=== PATIENT | male | born 1995 | race Two or more races ===

== ENCOUNTER 2024-08-29 09:05 | Outpatient (AMB) | payer BC, SELFPAY ==
[2024-08-29 09:15] VITALS: BP 149/86; PULSE 71; RESP 19; TEMP 36.3; O2SAT 98; BMI 29.5
--- NOTE | 2024-08-29 09:15 | GSCOFFNT_ITS ---
Vital Signs - [facility] 08/29/24 09:15 Height 1.85 m Height Method Stated Weight 101.378 kg Weight Measurement Method Standing Scale BMI 29.5 BP 149/86 H Blood Pressure Source Automatic Cuff Blood Pressure Location Right Upper Arm Position Sitting Respiration 19 Pulse 71 Pulse Source Monitor Temp 97.3 F Temp Source Temporal Artery Scan Pulse Oximetry (%) 98 Oxygen Delivery Method Room Air Med/Allergies Allergies & Medications Allergies No Known Drug Allergies Allergy (Verified 08/29/24 09:22) Medication Reconciliation ibuprofen 200 mg capsule 200 mg PO Q6H PRN 08/29/24 [History Confirmed 08/29/24] MA Intake Visit Data Collection New Patient or Established: New Patient (never been to [facility]) Reason for Visit:: CHOLELITHIASIS Pain Present Currently: Yes Pain Location: Abdomen Pain scale:: 5 Pain Scale Used: Moore-Diaz/Numerical Chief Data Officer Required: No PCP or OBGYN visit in last 3 months: Yes Hx Now: No Do You Feel Safe at Home: Yes Authorities Contacted: N/A Smoking Status Smoking Status: Former smoker Years smoked: 2 Are you interested in quitting?: No Would you like additional Smoking Cessation Counseling?: No Immunization / Flu Flu Vaccine in the Last 12 Months: No Flu Vaccine Exclusion Criteria: Refused by Patient Past Medical History Social History SMOKING STATUS: Smoking status: Former smoker Travel Risk Travel Hx Recent Travel: No HPI HPI Narrative 29M referred for cholelithiasis. Pt reports for the past year he has had intermittent pain, sometimes in the bilateral upper back but sometimes at the epigastrium/RUQ. Pt reports the pain symptoms comes after eating, but he also states that he sometimes eats greasy foods and does not have any pain. When the pain occurs it is severe and associated with nausea and diarrhea. He sought care at [facility] in 12/2023, underwent CT showing cholelithiasis but also underwent abdominal US which did not demonstrate cholelithiasis. Pt states he sometimes goes long periods without having any pain, he most recently had it a couple weeks ago PMH: None PSHx: None Meds: Ibuprofen, tylenol PRN for pain Allergies: NKDA Social hx: Nonsmoker ROS Review of Systems Systems Reviewed: All systems reviewed, normal except as documented Objective/Exam General General Appearance: alert, cooperative and well groomed Resp Respiratory exam: Absent respiratory distress Abdominal Abdominal exam: Present soft; Absent distention, tenderness or Spencer's sign Results CT AP 01/10/24: No hydronephrosis or obstructing urolith, cholelithiasis without CT evidence of cholecystitis US 01/10/24: Unremarkable RUQ US, known cholelithiasis is not well visualized on current exam Assessment & Plan Diagnosis / Problem List (1) Cholelithiasis: Status: Acute Plan 29M presenting with 1-year history of intermittent back/upper abdominal pain, CT findings of cholelithiasis which was not visualized on US. I explained that symptomatic cholelithiasis does tend to recur and surgery is recommended to prevent future attacks, and explained benefits/risks of surgery including need for conversion to open, bleeding, infection, hernia, injury to nearby structures requiring further procedures or surgery, as well as postoperative diarrhea. As pt's symptoms are far between he prefers to hold off on surgery for now, would like to repeat US since the initial was negative and will follow up after Orders: Orders US abdomen limited 2 Weeks K80.20 - Calculus of gallbladder without cholecystitis without obstruction Office Procedures GNS Level of Care Nursing/Assessment Patient Status: Initial/New Patient Nursing Assessment/Reassesment: Medication Reconciliation, Update PMH in EMR and Vital Signs Coordination of Care: Complex Care and Chronic Disease 1-5, Education Complex P t/Fam, Consent,records obtained, informed consent, Lab and Imaging orders, Results/Orders obtained and Staff clarify orders New Patient Charge New Patient Point Assignment: [id number] New Patient Point Charge: PAIRER ODDS Level 3 ([id number]) Patient Portal Questionaires Social History Tobacco History Smoking Status: Former smoker Domestic Abuse History Do You Feel Safe at Home: Yes Review of Systems Report any current symptoms Only answer those that you have currently: Past Medical History Past Medical History Have you ever been diagnosed with any of the following:
== END 2024-08-29 09:25 | disposition home or self-care (01) ==
LOC: HODSRG 09:05
PROVIDERS: Supervising Provider Surgery; Visit Provider Surgery
DX: K80.20 Calculus of gallbladder without cholecystitis without obstruction (principal)
CPT/HCPCS: 99203; G0463

== ENCOUNTER → 2024-09-23 | Outpatient (CLI) | payer BC, SELFPAY ==
--- NOTE | 2024-09-23 09:30 | XR_ITS ---
Examination: Abdomen sonogram, Limited Date and time of exam: September 23, 2024 1008 hours INDICATIONS: Recurrent right upper abdominal pain beginning 6 months ago Technique: Real-time ravi scale transabdominal sonographic images of the upper abdomen obtained. Findings: Multiple gallstones, the largest 19 mm Gallbladder wall 0.39 cm suspicious for edema involving the gallbladder wall Common bile duct 0.4 cm Pancreatic head 2.6 cm Liver 16.4 cm fatty infiltration irregular contour no focal liver lesions Normal hepatopedal portal venous flow Patent IVC IMPRESSION: Cholelithiasis Suspicious for cholecystitis, consider MRCP follow-up
== END | disposition home or self-care (01) ==
PROVIDERS: PCP Surgery; Referring Provider Surgery; Visit Provider Surgery
DX: K80.20 Calculus of gallbladder without cholecystitis without obstruction (principal)
CPT/HCPCS: 76705

== ENCOUNTER 2024-10-24 10:05 | Outpatient (AMB) | payer BC, SELFPAY ==
[2024-10-24 10:51] VITALS: BP 136/83; PULSE 56; RESP 18; TEMP 36.4; O2SAT 96; BMI 29.5
--- NOTE | 2024-10-24 10:51 | PD.GSCLVISIT ---
Vital Signs - [facility] 10/24/24 10:51 Height 1.85 m Height Method Stated Weight 101.236 kg Weight Measurement Method Standing Scale BMI 29.5 BP 136/83 H Blood Pressure Source Automatic Cuff Blood Pressure Location Left Upper Arm Position Sitting Respiration 18 Pulse 56 L Pulse Source Monitor Temp 97.6 F Temp Source Temporal Artery Scan Pulse Oximetry (%) 96 Oxygen Delivery Method Room Air Med/Allergies Allergies & Medications Allergies No Known Drug Allergies Allergy (Verified 10/24/24 10:52) Medication Reconciliation No Known Home Medications 10/24/24 [History Confirmed 10/24/24] MA Intake Visit Data Collection New Patient or Established: Established Patient (seen at [facility] within 3 years) Seen by Clinical Staff ONLY (RN/MA): No Reason for Visit:: ULTRASOUND RESULTS Pain Present Currently: 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 At last visit pt preferred to repeat US before proceeding with surgery, it was done 09/23/24 showing multiple gallstones one up to 19mm. Pt states he has not had severe pain but has had episodes of RUQ discomfort, and he is now interested in having surgery ROS Review of Systems Systems Reviewed: All systems reviewed, normal except as documented Objective/Exam General General Appearance: alert, cooperative and well groomed Resp Respiratory exam: Absent respiratory distress Results US reviewed Assessment & Plan Diagnosis / Problem List (1) Symptomatic cholelithiasis: Status: Acute Assessment & Plan: 29M with symptomatic cholelithiasis. We have discussed risks/benefits of surgery, pt understands and would like to proceed but prefers to wait until December, will follow up in November Office Procedures GNS Level of Care Nursing/Assessment Patient Status: Established Patient Nursing Assessment/Reassesment: Medication Reconciliation, Update PMH in EMR and Vital Signs Coordination of Care: Complex Care and Chronic Disease 1-5, Consent,records obtained, informed consent, Education Simp Pt/Fam, Results/Orders obtained and Staff clarify orders Established Patient Charge Established Patient Point Assignment: 90 Established Patient Point Charge: EP Level 3 (80-115) Patient Portal Questionaires Social History Tobacco History Smoking Status: Former smoker Domestic Abuse History Do You Feel Safe at Home: Yes Review of Systems Report any current symptoms Only answer those that you have currently: Past Medical History Past Medical History Have you ever been diagnosed with any of the following:
== END 2024-10-24 10:57 | disposition home or self-care (01) ==
LOC: HODSRG 10:05
PROVIDERS: Supervising Provider Surgery; Visit Provider Surgery
DX: K80.20 Calculus of gallbladder without cholecystitis without obstruction (principal)
CPT/HCPCS: 99213; G0463

== ENCOUNTER 2024-12-16 10:02 | Outpatient (AMB) | payer BC, SELFPAY ==
[2024-12-16 10:26] VITALS: BP 134/84; PULSE 60; RESP 19; TEMP 36.6; O2SAT 97; BMI 29.5
--- NOTE | 2024-12-16 10:26 | PD.GSCLVISIT ---
Vital Signs - [facility] 12/16/24 10:26 Height 1.85 m Height Method Stated Weight 100.839 kg Weight Measurement Method Standing Scale BMI 29.5 BP 134/84 H Blood Pressure Source Automatic Cuff Blood Pressure Location Left Upper Arm Position Sitting Respiration 19 Pulse 60 Pulse Source Monitor Temp 97.8 F Temp Source Temporal Artery Scan Pulse Oximetry (%) 97 Oxygen Delivery Method Room Air Med/Allergies Allergies & Medications Allergies No Known Drug Allergies Allergy (Verified 12/16/24 10:27) Medication Reconciliation No Known Home Medications 10/24/24 [History Confirmed 12/16/24] MA Intake Visit Data Collection New Patient or Established: Established Patient (seen at [facility] within 3 years) Seen by Clinical Staff ONLY (RN/MA): No Reason for Visit:: 2 MONTH FOLLOW UP Pain Present Currently: No PCP or OBGYN visit in last 3 months: Yes Hx Now: No Do You Feel Safe at Home: Yes Authorities Contacted: N/A Smoking Status Smoking Status: Former smoker Immunization / Flu Flu Vaccine in the Last 12 Months: No Flu Vaccine Exclusion Criteria: No Exclusion Criteria Past Medical History Social History SMOKING STATUS: Smoking status: Former smoker HPI HPI Narrative 29M here for follow up of cholelithiasis. Pt reports he had an episode of pain and vomiting recently after going out for a work event, otherwise no new complaints ROS Review of Systems Systems Reviewed: All systems reviewed, normal except as documented Objective/Exam General General Appearance: alert, cooperative and well groomed Resp Respiratory exam: Absent respiratory distress Assessment & Plan Diagnosis / Problem List (1) Symptomatic cholelithiasis: Status: Acute Assessment & Plan: 29M with symptomatic cholelithiasis here to discuss surgery. I reiterated risks including need for conversion to open, bleeding, infection, injury to nearby structures requiring further procedures or major surgery which would require transfer to another hospital, hernia and diarrhea. All questions were answered and pt is agreeable to proceeding Plan: Laparoscopic cholecystectomy, possible open MonJan 01 per pt preference Office Procedures GNS Level of Care Nursing/Assessment Patient Status: Established Patient Nursing Assessment/Reassesment: Medication Reconciliation, Update PMH in EMR and Vital Signs Coordination of Care: Complex Care and Chronic Disease 1-5, Consent,records obtained, informed consent, Education Simp Pt/Fam, Results/Orders obtained and Staff clarify orders Established Patient Charge Established Patient Point Assignment: 90 Established Patient Point Charge: EP Level 3 (80-115) Patient Portal Questionaires Social History Tobacco History Smoking Status: Former smoker Domestic Abuse History Do You Feel Safe at Home: Yes Review of Systems Report any current symptoms Only answer those that you have currently: Past Medical History Past Medical History Have you ever been diagnosed with any of the following:
== END 2024-12-16 10:39 | disposition home or self-care (01) ==
PROVIDERS: Supervising Provider Surgery; Visit Provider Surgery
DX: K80.20 Calculus of gallbladder without cholecystitis without obstruction (principal)
CPT/HCPCS: 99213; G0463

== ENCOUNTER 2025-01-01 05:35 | Day surgery (SDC) | payer BC, SELFPAY ==
[2024-12-26 09:23] VITALS: BMI 29.5
[2024-12-26 10:03] LABS: Basophils % (Auto) 1 % (0-2.5); Eosinophils # (Auto) 0.1 Thou/mm3 (0.0-0.5); Eosinophils % (Auto) 2 % (0-10); Hematocrit 43.7 % (41.0-53.0); Hemoglobin 15.5 g/dL (13.5-16.0); Immature Granulocytes % (Auto) 0 % (0-0); Immature Granulocytes Auto 0.03 Thou/mm3 (0.00-0.00); Lymphocytes # (Auto) 1.9 Thou/mm3 (1.0-4.8); Lymphocytes % (Auto) 25 % (10-50); Mean Corpuscular HGB Conc 35.5 g/dl (31.0-37.0); Mean Corpuscular Hemoglobin 29.9 pg (25.0-35.0); Mean Corpuscular Volume 84 fL (80-100); Monocytes # (Auto) 0.6 Thou/mm3 (0.0-0.8); Monocytes % (Auto) 7 % (0-12); Neutrophils # (Auto) 4.9 Thou/mm3 (1.8-7.7); Neutrophils % (Auto) 65 % (37-80); Nucleated Red Blood Cell % 0 /100 WBC (0); Platelet Count 241 Thou/mm3 (140-440); RDW Standard Deviation 37.2 fL (35.1-43.9); Red Blood Count 5.18 Miln/mm3 (4.50-5.90); White Blood Count 7.5 Thou/mm3 (3.8-10.6)
[2024-12-26 10:11] LABS: Partial Thromboplastin Time 29.1 Seconds (22.0-36.0); Prothrombin Time 10.8 Seconds (9.0-12.2)
[2024-12-26 10:13] LABS: Anion Gap 5 (7-16); BUN/Creatinine Ratio 12 Ratio (12-20); Blood Urea Nitrogen 11 mg/dL (9-23); Carbon Dioxide 29.9 mMol/L (20.0-31.0); Chloride 106 mMol/L (98-107); Creatinine (Component) 0.9 mg/dL (0.6-1.3); Estimated Creatinine Clearance 154.5 mL/min (>60); Glucose 108 mg/dL (74-106); Osmolality,Calculated 281 (275-295); Potassium 4.6 mMol/L (3.4-5.1); Sodium 141 mMol/L (136-145); eGFR > 60 See Note
[2025-01-01] VITALS (8 sets, daily range): BP systolic 126–169; BP diastolic 69–96; PULSE 67–96; RESP 14–20; TEMP 36.9–37.2; O2SAT 95–99; BMI 29.7
[2025-01-01] MEDS: RINGERS LACTATED 1000 ML 1,000 ML 20 ML IV (06:23)
--- NOTE | 2025-01-01 08:55 | ESOP_ITS ---
Date of Procedure 01/01/25 Pre Op Diagnosis Symptomatic cholelithiasis Post Op Diagnosis Same Procedure Laparoscopic cholecystectomy Findings Gallbladder with stones Procedure Description After discussion of risks and benefits, patient was brought to the operating room, SCDs were placed and general anesthesia was induced. He received preop erative antibiotics and was prepped and draped in the usual sterile fashion. After timeout a supraumbilical incision was made with a #15 blade and the skin was elevated with towel clamps. A Veress needle was placed through the incision and proper positioning was confirmed with a drop test. The abdomen was insufflated to 15 mmHg at which point the Veress needle was exchanged for a 5 mm camera using a Visiport technique. There were no signs of injury from the point of entry. 3 additional ports were placed under direct vision, one 12 mm at the epigastrium, one 5 mm right subcostal and one 5 mm right anterior axillary line. Patient was placed in reverse Trendelenburg. The fundus of the gallbladder was grasped retracted cephalad and the infundibulum of the gallbladder was grasped and retracted laterally. Using blunt dissection the critical view of safety was achieved and the cystic duct and cystic artery were clipped and transected in the usual fashion. The gallbladder was removed from the gallbladder bed using electrocautery and the specimen was removed in an Endo Catch bag via the epigastric port the gallbladder bed was examined and there were no signs of bleeding. The epigastric fascia was closed with 0 Vicryl suture using a Tigre- Mame. Pneumoperitoneum was released and ports were removed under direct vision. The incisions were irrigated and infiltrated with half percent Marcaine for a total of 30 cc. Incisions were closed with 4-0 Monocryl and reinforced with Dermabond. Patient was extubated and brought to PACU in stable condition Pathology / specimen Other (Gallbladder) Estimated Blood Loss 25 Surgeon Leonela Layne MD Surgical Staff Operation Date: 01/01/25 07:30 Case Staff Anesthesiologist: Arnulfo Robles RN First Assistant: Olive Leavitt
--- NOTE | 2025-01-01 08:57 | PD.SURDS ---
Planned Discharge Date 01/01/25 DS: Providers Provider Primary care physician: Physician No Primary/Family Attending Provider on Admission: Leonela Layne MD Attending Provider on DC: Leonela Layne MD Discharging Provider: Leonela Layne MD Diagnosis Discharge Diagnosis (1) Symptomatic cholelithiasis: Status: Acute Problem List Completed Was Problem List Reviewed/Reconciled?: Yes Exam Vital Signs Temp Pulse Resp BP Pulse Ox 99.0 F 67 18 146/80 H 99 01/01/25 06:17 01/01/25 06:17 01/01/25 06:17 01/01/25 06:17 01/01/25 06:17 Discharge Plan Plan Patient Disposition: HOME (Self Care) Prescriptions/Referrals Prescriptions/Med Rec: New oxycodone-acetaminophen [Endocet] 5-325 mg tablet 1 tab PO Q6H MDD 6 tabs PRN (Reason: pain) Qty: 10 0RF Rx Instructions: Take 1 tab every 4-6 hours as needed for severe pain ibuprofen 800 mg tablet 800 mg PO Q8H PRN (Reason: pain) Qty: 20 0RF Rx Instructions: Take every 8 hours as needed for moderate to severe pain No Action ibuprofen 200 mg capsule 400 mg PO Q8H PRN (Reason: pain) Referrals: Leonela Layne MD [Physician] - (You will receive a phone call to confirm a follow-up appointment with me in 2 weeks) No Primary/Family,Physician [Primary Care Provider] - Patient/Caregiver Discharge Instructions Other Discharge Activity Instructions:: Avoid lifting objects greater than 10 pounds for 6 weeks You may resume showering in 2 days, on 01/03/2025 Avoid bathing or swimming for 2 weeks Your stitches have skin glue on them which will fall off on its own and does not need to be replaced Your stitches will not need to be removed If you develop worsening pain, nausea/vomiting, fever or jaundice please seek care in ER Education Materials: Cholecystectomy Laparoscopic Dc, Preventing Surgical Site Infections Print Language: Romanian Stand Alone Forms: Yisel Award Info., Patient Portal Info Letter Discharge Order Discharge Orders: Discharge (Routine); Ordered 01/01/25 Ordered By: Leonela Layne Results Results: Laboratory Laboratory results: results reviewed Results: Imaging US - abdomen: report reviewed and image reviewed Procedures Procedure Date 01/01/25 Procedures Laparoscopic cholecystectomy
[2025-01-01] MEDS: fentaNYL CIT INJ 50 mCg/ML AMP 2ML 25 MCG IV ×4 (09:02→09:42)
--- NOTE | 2025-01-01 09:05 | SUR.PHASEI ---
0858 Patient arrived to recovery lethargic, restless, rolling in bed, unable to respond to verbal prompting, patient appears to be in pain as evidence by abdominal guarding, facial grimacing, unable to hold still, unable to obtain blood pressure, breathing unlabored, dressing intact; no bleeding noted, will medicate patient for pain 09 Patient medicated for pain per anesthesia order 0905 P resting comfortably in [facility], will monitor patient
--- NOTE | 2025-01-01 10:14 | SUR.PHASEII ---
1014 Patient meets discharge criteria from recovery, awake and alert, breathing unlabored, vital signs stable, per patient his pain is tolerable, dressing intact; no bleeding noted, patient drinking fluids; tolerating well, denies nausea, patient assisted with dressing into his clothing by this movie writer, discharge instructions given to patient and patients , signed discharge instructions. Patient given all his belongings prior to discharge, transported via wheelchair and left in a private vehicle.
== END 2025-01-01 10:14 | disposition home or self-care (01) ==
PROVIDERS: Referring Provider Surgery; Visit Provider Surgery
PROC: 0FT44ZZ Resection of Gallbladder, Percutaneous Endoscopic Approach (ICD-10-PCS; CPT 47562; principal; 2025-01-01 07:30)
DX: K80.10 Calculus of gallbladder with chronic cholecystitis without obstruction (principal)
CPT/HCPCS: 47562; 36415; 80048; 85025; 85610; 85730; A4217; A4649; J0131; J0694; J1100; J2250; J2405; J2704; J3010; J3490; J7120

== ENCOUNTER 2025-01-13 11:53 | Outpatient (AMB) | payer BC, SELFPAY ==
[2025-01-13 12:01] VITALS: BP 144/83; PULSE 69; RESP 18; TEMP 37.1; O2SAT 98; BMI 29.7
--- NOTE | 2025-01-13 12:01 | GSCOFFNT_ITS ---
Vital Signs - [facility] 01/13/25 12:01 Height 1.8 m Height Method Stated Weight 96.36 kg Weight Measurement Method Standing Scale BMI 29.7 BP 144/83 H Blood Pressure Source Automatic Cuff Blood Pressure Location Right Upper Arm Position Sitting Respiration 18 Pulse 69 Pulse Source Monitor Temp 98.8 F Temp Source Temporal Artery Scan Pulse Oximetry (%) 98 Oxygen Delivery Method Room Air Med/Allergies Allergies & Medications Allergies No Known Drug Allergies Allergy (Verified 01/13/25 12:02) Medication Reconciliation ibuprofen 200 mg capsule 400 mg PO Q8H PRN pain 12/26/24 [History Confirmed 01/13/25] ibuprofen 800 mg tablet 800 mg PO Q8H PRN pain #20 tabs 01/01/25 [Rx Confirmed 01/13/25] oxycodone-acetaminophen 5 mg-325 mg tablet (Endocet) 1 tab PO Q6H PRN pain #10 tabs 01/01/25 [Rx Confirmed 01/13/25] MA Intake Visit Data Collection New Patient or Established: Established Patient (seen at [facility] within 3 years) 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 Present Currently: Yes Pain Location: Abdomen Pain scale:: 5 Pain Scale Used: Moore-Diaz/Numerical Fiction And Nonfiction Author Required: No PCP or OBGYN visit in last 3 months: Yes Hx Now: No Do You Feel Safe at Home: Yes Authorities Contacted: N/A Smoking Status Smoking Status: Former smoker Immunization / Flu Flu Vaccine in the Last 12 Months: No Flu Vaccine Exclusion Criteria: No Exclusion Criteria Past Medical History Past Medical History NEUROLOGIC: Negative Neurological Disorders or Seizures CARDIAC: Negative Cardiac Disorders or Congestive Heart Failure RESPIRATORY: Negative Chronic Obstructive Pulmonary Disease (COPD) GASTROINTESTINAL: Positive Gastrointestinal Disorders and Gall Bladder Disease GENITOURINARY: Negative Genitourinary Disorders or Renal Disease MUSCULOSKELETAL: Negative Musculoskeletal Disorders ENDOCRINE: Negative Endocrine Disorders, Diabetes Mellitus Type 1 or Diabetes Mellitus Type 2 HEMATOLOGIC: Negative Blood Disorders OTHER HISTORY: Negative Hospitalization, Autoimmune Disease, Shingles, Blood Transfusions, Blood Transfusion Reaction, Anesthesia Reactions, Clostridium Difficile or Cancer Family History FAMILY HISTORY: Positive Family Cardiac Disorders, Family Cancer and Family Surgery; Negative Family Psychiatric Problems, Family Respiratory Disorders, Family Gastrointestinal Problems or Family Anesthesia Reaction Social History SMOKING STATUS: Smoking status: Former smoker ALCOHOL: Alcohol Intake: Current HOUSING: Housing: House Travel Risk Travel Hx Recent Travel: No HPI HPI Narrative 29M s/p lap cholecystectomy 01/01/25 for recurrent symptomatic cholelithiasis here for planned follow up. Pt states he feels well overall, is still having some soreness at the epigastric and RUQ incision sites, with some difficulty coughing/taking deep breaths but these symptoms are improving every day. His ap petite is returning back to normal and he is having regular bladder and bowel function just with mild constipation. He denies any fever or jaundice ROS Review of Systems Systems Reviewed: All systems reviewed, normal except as documented Objective/Exam General General Appearance: alert, cooperative and well groomed Resp Respiratory exam: Absent respiratory distress Abdominal Abdominal exam: Present soft and incision (c/d/i, no erythema, no fluctuance or tenderness); Absent distention or tenderness Results Pathology of gallbladder reviewed Assessment & Plan Diagnosis / Problem List (1) Symptomatic cholelithiasis: Status: Acute Assessment & Plan: 29M s/p lap cholecystectomy 01/01 for chronic cholecystitis, recovering well Plan: Avoid strenuous activity including lifting >10lbs for 6 weeks postop F/u as needed Office Procedures GNS Level of Care Nursing/Assessment Patient Status: Established Patient Nursing Assessment/Reassesment: Medication Reconciliation, Update PMH in EMR and Vital Signs Coordination of Care: Complex Care and Chronic Disease 1-5, Education Complex Pt/Fam, Consent,records obtained, informed consent, Results/Orders obtained and Staff clarify orders Established Patient Charge Established Patient Point Assignment: 95 Established Patient Point Charge: EP Level 3 (80-115) Patient Portal Questionaires Social History Living Situation History Housing: House Tobacco History Smoking Status: Former smoker Alcohol History Alcohol Intake: Current Domestic Abuse History Do You Feel Safe at Home: Yes Review of Systems Report any current symptoms Only answer those that you have currently: Past Medical History Past Medical History Have you ever been diagnosed with any of the following: Neurological Problems Seizures: No Cardiology Problems Congestive Heart Failure: No Respiratory Problems Chronic Obstructive Pulmonary Disease (COPD): No Stomache/Intestinal Problems Gall Bladder Disease: Yes Genital/Urinary Problems Renal Disease: No Endocrine Problems Diabetes Mellitus Type 1: No Diabetes Mellitus Type 2: No Other Problems Hospitalization: No Autoimmune Disease: No Shingles: No Blood Transfusions: No Blood Transfusion Reaction: No Anesthesia Reactions: No Clostridium Difficile: No Cancer: No
== END 2025-01-13 12:18 | disposition home or self-care (01) ==
PROVIDERS: Supervising Provider Surgery; Visit Provider Surgery
DX: K80.10 Calculus of gallbladder with chronic cholecystitis without obstruction (principal); Z90.49 Acquired absence of other specified parts of digestive tract
CPT/HCPCS: 99213; G0463